=== PATIENT | male | born 1960 | race Caucasian/White ===

== ENCOUNTER 2020-01-31 12:14 | Emergency (ER) | payer MEDICARE, MEDICAID, SELFPAY ==
--- NOTE | ~2020-01-31 | CT_ITS ---
EXAMINATION: CT brain wo con INDICATION: Vision loss COMPARISON: None TECHNIQUE: Standard unenhanced head CT. The dose-length product (DLP) was 681.00 mGy-cm. The mA was a djusted according to patient size. Iterative reconstruction technique was employed. FINDINGS: There is no acute intraparenchymal hemorrhage. No evidence of mass lesion. No evidence of a cute infarction. There is moderate periventricular and subcortical hypodensity probably related to sm all vessel ischemic disease. There is moderate prominence of the sulci and ventricles related to cere bral atrophy. Intracranial calcified cerebral atherosclerosis is noted. There are no extra-axial marimar ections. There is no mass effect or midline shift. The orbits and soft tissues are unremarkable. The re is mild mucosal thickening of the paranasal sinuses. IMPRESSION: 1. No acute intracranial abnormality. 2. Age related findings. Reviewed, dictated and finalized at location A.
--- NOTE | ~2020-01-31 | XR_ITS ---
EXAMINATION: XR chest 1V INDICATION: Cough TECHNIQUE: AP view of the chest is obtained. COMPARISON: None available FINDINGS: There is a small right pleural effusion. No pneumothorax is identified. There are minimal a irspace opacities of the right lung base. The cardiomediastinal silhouette is normal. There are heale d fractures of the right seventh and eighth ribs. There is an age-indeterminate fracture at the poste rior aspect of the right eighth rib. IMPRESSION: 1. Small right pleural effusion. 2. Age indeterminate right posterior eighth rib fracture. 3. Right basilar airspace opacity, likely atelectasis. Reviewed, dictated and finalized at location A.
[2020-01-31 12:17] VITALS: BP 177/95; PULSE 87; RESP 18; TEMP 36.8; O2SAT 98
--- NOTE | 2020-01-31 12:22 | ECG_ITS ---
Measurements Intervals [place] Rate: 75 P: 74 CA: 209 QRS: -85 QRSD: 162 T: 55 QT: 397 QTc: 445 Interpretive Statements SINUS RHYTHM WITH FIRST DEGREE AV BLOCK POSSIBLE RIGHT ATRIAL ENLARGEMENT RIGHT BUNDLE BRANCH BLOCK LEFT ANTERIOR FASCICULAR BLOCK VOLTAGE CRITERIA FOR LVH ABNORMAL ECG Electronically Signed On 01-31-2020 16:41:26 CDT by Keyon Bee D.O.
--- NOTE | 2020-01-31 12:25 | PC.NURSE ---
friend bg grossman [phone]
--- NOTE | 2020-01-31 12:41 | PC.NURSE ---
patient reports that he is able to essence see light and shadows from both eyes for a week. states he didnt think visual loss was a problem and that he just need some eye drops. got the visine today which didnt do any good
[2020-01-31 12:43] VITALS: BP 164/92; PULSE 76; RESP 18; O2SAT 99
[2020-01-31 12:45] LABS: Basophils Absolute Auto 0.1 K/mm3 (0.0-0.1); Basophils Percent Auto 0.8 % (0.2-1.2); Eosinophils Absolute Auto 0.1 K/mm3 (0-0.3); Eosinophils Percent Auto 0.8 % (0-4.4); Hematocrit 55.7 % (42.0-52.0); Hemoglobin 19.3 g/dL (14.0-18.0); Immature Granulocyte Absolute 0.01 K/mm3 (0.00-0.031); Immature Granulocyte Percent A 0.1 % (0-0.5); Lymphocytes Percent Auto 28.6 % (18.3-44.2); Mean Corpuscular HGB Conc 34.6 g/dl (32-36); Mean Corpuscular Hemoglobin 32.5 pg (26-34); Mean Corpuscular Volume 93.9 fl (80-100); Mean Platelet Volume 9.8 fl (7.4-10.4); Monocytes Absolute Auto 1.1 K/mm3 (0.1-0.6); Monocytes Percent Auto 14.6 % (2.6-8.5); Neutrophils Absolute Auto 4.1 K/mm3 (1.3-6.7); Neutrophils Percent Auto 55.1 % (45.5-73.1); Platelet Count Result 355 k/mm3 (150-375); Red Blood Count 5.93 M/mm3 (4.6-6.20); Red Cell Distribution Width 13.6 % (11.5-14.5); White Blood Count 7.4 K/mm3 (4.5-10.0)
[2020-01-31 12:57] LABS: Blood Urea Nitrogen 13 mg/dL (9-20); Calcium 9.4 mg/dL (8.4-10.2); Carbon Dioxide 30 mmol/L (22-30); Chloride 93 mmol/L (98-107); Estimated CRCL calculation 113 ml/min; Estimated Glomerular Filt Rate > 60; Glucose 100 mg/dL (75-110); Potassium 4.3 mmol/L (3.4-5.0); Sodium 132 mmol/L (137-145)
--- NOTE | 2020-01-31 12:57 | ED.EYEPROB ---
HPI - Eye Problem General Chief complaint: Eye Problems Stated complaint: visual loss in both eyes Time Seen by Provider: 01/31/20 12:44 History of Present Illness HPI Narrative: Patient sent from the urgent care to our ED for loss of vision. He was driven by a friend. He said that he lost the vision in the left eye 4 weeks ago, and lost the vision in the right eye 1 week. He can only see light and shadows. He cannot see his hand in front of his face. He has never seen an eye doctor. He has had no trauma. He has no pain, or redness or discharge. He is tried several different eyedrops. The patient has mental disability for depression, but does not take the medication because he says it makes him worse. He smokes cigarettes and drinks alcohol. He takes no prescription medication. He had a surgery when his right lung collapsed when he was 16 years old. chief complaint: vision change Onset (ago): week(s) Onset description: gradual Duration: constant Location: both eyes Eye Symptoms: decreased vision and blurry vision Mechanism: none Related Data Home Medications Medication Instructions Recorded Confirmed No Home Medications 01/31/20 01/31/20 Allergies Allergy/AdvReac Type Severity Reaction Status Date / Time No Known Allergies Allergy Verified 01/31/20 12:25 Review of Systems Review of Systems: Narrative: CONSTITUTIONAL: Denies fever, chills, or sweats. EYES: Denies redness, or discharge. ENT: Denies rhinorrhea, congestion, sore throat, or otalgia. CARDIOVASCULAR: Denies chest pain, palpitations, or edema. RESPIRATORY: Denies cough or dyspnea. GASTROINTESTINAL: Denies abdominal pain, nausea, vomiting, or diarrhea. GENITOURINARY: Denies dysuria or hematuria. SKIN: Denies rash or itching. MUSCULOSKELETAL: Denies back pain, joint pain, or myalgia. NEUROLOGIC: Denies headache, numbness, or weakness. PSYCHIATRIC: Denies anxiety or depression. [facility]LY [facility] Past Medical History Medical History (Updated 01/31/20 @ 13:20 by Eleanor Joya MD) Blindness Mental disability Pleural effusion on right Surgical History Surgical History (Updated 01/31/20 @ 13:00 by Eleanor Joya MD) History of chest tube placement Social History Social History (Updated 01/31/20 @ 13:00 by Eleanor Joya MD) Smoking status: Current every day smoker Alcohol intake: current Gender identity (if verbalized by the patient): Male Exam Narrative: Exam Narrative: GENERAL: Well-appearing, well-nourished, and in no acute distress. HEAD: Normocephalic, atraumatic. EYES: PERRLA, right exotropia, no direct eye contact, does not follow, retina not seen, bilateral white light behind the pupils. Sclera white no redness. ENT: Nares clear, no rhinorrhea or epistaxis. Mucous membranes moist. NECK: Supple. CHEST: Clear to auscultation. No respiratory distress. HEART: Regular rate and rhythm. No murmur heard. Normal peripheral pulses. ABDOMEN: Soft, nontender, nondistended, normal active bowel sounds. EXTREMITIES: Normal range of motion. No edema. SKIN: Warm, dry, no rash. NEURO: No focal deficits. Alert and oriented x3. PSYCH: Normal mood and affect. Const: General: no acute distress Course Reevaluation(s) Reevaluation #1: Went in to tell the patient that he is going to [facility] for an evaluation by the eye doctor, and he is most concerned about contacting his right to let him know the update and plans. Date: 01/31/20 Time: 13:21 Consultations Consultation #1: Called slow access line to speak to ophthalmology. I suspect these are cataracts. I need to know whether they want to see him today or for him to make an appointment later. Spoke with Dr. Ramon, and he wants the patient to come over to the ED for evaluation. Spoke with Dr. Fuller, and he accepts. Date: 01/31/20 Time: 13:02 Vital Signs Vital signs: Vital Signs Temperature 98.2 F 01/31/20 12:17 Pulse Rate 87 01/31/20 12:17 Respiratory Rate 18
[2020-01-31 12:58] LABS: Prothrombin Time 12.8 Seconds (11.1-14.7)
[2020-01-31 12:59] LABS: Partial Thromboplastin Time 32.7 SECONDS (22.3-36.8)
[2020-01-31 13:08] LABS: Troponin I < 0.012 ng/mL (0.000-0.034)
--- NOTE | 2020-01-31 13:36 | PC.NURSE ---
report called to lance at [facility] er
[2020-01-31 15:46] VITALS: BP 132/78; PULSE 70; RESP 18; O2SAT 99
[2020-01-31] MEDS: SODIUM CHLORIDE 0.9% IV 1,000 ML 999 ML IV CONT (16:48)
[2020-01-31 17:38] VITALS: BP 125/76; PULSE 80; RESP 18; O2SAT 99
== END 2020-01-31 17:40 | disposition short-term general hospital (02) ==
PROVIDERS: Emergency Provider Emergency Medicine
DX: J90 Pleural effusion, not elsewhere classified (principal); H54.7 Unspecified visual loss; D75.1 Secondary polycythemia; I45.2 Bifascicular block; I44.0 Atrioventricular block, first degree; F17.210 Nicotine dependence, cigarettes, uncomplicated
CPT/HCPCS: 36415; 70450; 71045; 80048; 84484; 85025; 85610; 85730; 93005; 96360; 99285; J7030